=== PATIENT | male | born 1970 | race Caucasian/White ===

== ENCOUNTER 2016-07-07 21:59 | Emergency (ER) | payer OTHER ==
[~2016-07-07] VITALS: Ht 177.8 cm; Wt 158.8 kg
[2016-07-07] MEDS ORDERED: Nitroglycerin 50mg/250ml btl 250 ML IV ONE (22:15)
[2016-07-07] MEDS ORDERED: HYDROmorphone 1mg/ml Carpuject IVP ONE ×2 (22:15→22:45)
[2016-07-07] MEDS ORDERED: Heparin Sod 1000 units/ml 10ml INJ ONE (22:15)
[2016-07-07 22:26] LABS: BASOPHILS % (AUTO) 2.3 % (0.0-2.0); EOSINOPHILS % (AUTO) 6.7 % (0.0-3.0); LYMPHOCYTES % (AUTO) 28.6 % (20.0-45.0); MEAN CORPUSCULAR HEMOGLOBIN 31.6 PG (27.0-31.0); MEAN CORPUSCULAR HGB CONC 35.2 G/DL (32.0-36.0); MEAN CORPUSCULAR VOLUME 90 FL (80-99); MEAN PLATELET VOLUME 8.2 FL (6.5-10.1); MONOCYTES % (AUTO) 7.7 % (1.0-10.0); NEUTROPHILS % (AUTO) 54.7 % (45.0-75.0); PLATELET COUNT 266 K/UL (150-450); RED BLOOD COUNT 4.79 M/UL (4.70-6.10); RED CELL DISTRIBUTION WIDTH 11.4 % (11.6-14.8); WHITE BLOOD COUNT 10.4 K/UL (4.8-10.8)
[2016-07-07] MEDS ORDERED: Heparin 5000 units/ml inj ONE (22:26)
[2016-07-07] MEDS ORDERED: Heparin 25,000u/D5W 500ml 500 ML IV SCH (22:30)
[2016-07-07] MEDS ORDERED: Aspirin Baby 81mg ORAL ONE (22:30)
[2016-07-07 22:40] LABS: INR 1.1 (0.9-1.1)
--- NOTE | 2016-07-07 22:51 | Emergency Room Report ---
History of Present Illness General Chief Complaint: Chest Pain Source: Patient Present Illness HPI Is a 46-year-old male with a history diabetes. He also has morbid obesity with a BMI of 50. He presents with chief complaint of chest pain. Onset was an hour prior to arrival. He was sitting down working when he develops a set of chest pain. Pain was 8/10. No radiation. He felt very nauseous and was diaphoretic. Never had this problem before. He called 911. EMS EKG showed a sinus rhythm without any ST elevation. He received 2 baby aspirin and 2 sprays nitroglycerin. He said pain going down from 8-5. On arrival he said pain is coming back up. Nauseous but no vomiting. No diarrhea. Exertion made it worse. Allergies: Coded Allergies: No Known Allergies (Unverified , 07/07/16) Patient History Past Medical History: see triage record, old chart reviewed, DM Past Surgical History: none Pertinent Family History: none Social History: Denies: drug use Immunizations: other Reviewed Nursing Documentation: PMH: Agreed, PSxH: Agreed Nursing Documentation-PMH Hx Diabetes: Yes Review of Systems Eye: Denies: blurred vision, eye pain ENT: Denies: ear pain, nose congestion, throat swelling Respiratory: Denies: cough, shortness of breath Cardiovascular: Reports: chest pain, Denies: palpitations Gastrointestinal: Denies: abdominal pain, diarrhea, nausea, vomiting Musculoskeletal: Denies: back pain, joint pain Skin: Denies: rash Neurological: Denies: headache, numbness Endocrine: Denies: increased thirst, increased urine Hematologic/Lymphatic: Denies: easy bruising All Other Systems: negative except mentioned in HPI Physical Exam Vital Signs Date Time Temp Pulse Resp B/P Pulse Ox O2 Delivery O2 Flow Rate FiO2 07/07/16 21:55 97.5 74 18 129/92 98 Room Air vitals normal Sp02 EP Interpretation: reviewed, normal General Appearance: well appearing, alert, moderate distress, obese Head: normocephalic, atraumatic Eyes: bilateral eye EOMI, bilateral eye PERRL ENT: hearing grossly normal, normal pharynx Neck: full range of motion, supple, no meningismus Respiratory: chest non-tender, lungs clear, normal breath sounds Cardiovascular #1: regular rate, rhythm, no murmur Gastrointestinal: normal bowel sounds, non tender, no mass, no organomegaly, no bruit, non-distended Musculoskeletal: back normal, gait/station normal, normal range of motion Psychiatric: mood/affect normal Skin: warm/dry Procedures Critical Care Time Critical Care Time Critical care is mandated in this patient who presented with STEMI. Patient require my urgent intervention to attenuate the risks of metabolic which may lead to cardiovascular collapse and . Critical care time is 35 minutes excluding any reportable procedure. Critical care time included evaluation, multiple reevaluation, looking at old charts, interpreting laboratory and diagnostic data, discussing case with patient and family and consultants, and charting. Medical Decision Making Diagnostic Impression: Primary Impression: AMI inferior wall Additional Impression: Morbid obesity with BMI of 50.0-59.9, adult ER Course Patient presents with acute inferior wall GA with respiratory changes. He received Dilaudid, 2 more baby aspirin, nitroglycerin drip, heparin bolus and heparin drip. I also gave him Plavix 600 mg bolus based on recommendation of brick kil[employer] burner at [facility]. I stop the nitroglycerin drip based on the recommendation of VENTURA Arizmendi. Patient will be transferred to [facility] at [facility] because Alex gutierrez has patient in the [facility] and they do not have the necessary staff to take the patient at this point. Patient will be transferred 911 Lab Results Impression labs with troponin pending EKG Diagnostic Results Rate: normal Rhythm: NSR ST Segments: other - ST elevation inferiorly Rhythm Strip Diag. Results EP Interpretation: yes Rhythm: NSR, no PVC's, no ectopy Chest X-Ray Diagnostic Results EP Interpretation: Yes Findings: no consolidation, no effusion, no pneumothorax, no acute cardiopulmonary disease Number of Views: 1 Last Vital Signs Date Time Temp Pulse Resp B/P Pulse Ox O2 Delivery O2 Flow Rate FiO2 07/07/16 21:55 97.5 74 18 129/92 98 Room Air Status: improved Disposition: XFER SHT-TRM HOSP Condition: Critical Referrals: YUNIEL MONTOYA,REFERRING (PCP) RAO HAMPTON M.D. Jul 07, 2016 22:51
[2016-07-07 22:59] VITALS: BP 120/77
[2016-07-07 23:01] LABS: TROPONIN I < 0.30 ng/mL (<=0.30)
[2016-07-07 23:05] LABS: ALANINE AMINOTRANSFERASE 26 U/L (3-41); ALBUMIN/GLOBULIN RATIO 1.1 (1.0-2.7); ANION GAP 17 (5-15); ASPARTATE AMINO TRANSFERASE 27 U/L (5-40); CARBON DIOXIDE 24 mEQ/L (20-30); CHLORIDE 95 mEQ/L (98-107); CREATININE 0.8 mg/dL (0.7-1.2); GLOMERULAR FILTRATION RATE > 60 mL/min (>60); HEMOLYSIS 31; POTASSIUM 4.1 mEQ/L (3.4-4.9); SODIUM 136 mEQ/L (135-145); TOTAL PROTEIN 6.8 g/dL (6.6-8.7)
[2016-07-07 23:15] LABS: CKMB 2.1 ng/mL (< 6.7)
[2016-07-07 23:18] VITALS: BP 120/77
--- NOTE | 2016-07-08 14:43 | Diagnostic Imaging Report ---
Indication: Chest pain Technique: One view of the chest Comparison: none Findings: Body habitus limits evaluation. The heart is mildly enlarged. Prominent upper mediastinum probably reflects abundant mediastinal fat. Lungs and pleural spaces are clear. Impression: No definite acute process Mild cardiomegaly
--- NOTE | 2016-07-09 13:23 | Cardiology Report ---
APPROVED REPORT EKG Measurement Heart [id number] Normal sinus rhythm ST elevation, consider inferior injury or acute infarct Consider right ventricular involvement in acute inferior infarct Abnormal ECG
== END 2016-07-07 23:24 | disposition short-term general hospital (02) ==
LOC: EDBD 21:59 → EMR 22:15
DX: I21.19 ST elevation (STEMI) myocardial infarction involving other coronary artery of inferior wall (principal); E66.01 Morbid (severe) obesity due to excess calories; Z68.43 Body mass index [BMI] 50.0-59.9, adult; E11.9 Type 2 diabetes mellitus without complications; I51.7 Cardiomegaly
CPT/HCPCS: 36415; 71010; 80053; 82550; 82553; 84484; 85025; 85610; 85730; 93005; 96374; 96375; 99291; J1170; J1644; J2405